=== PATIENT | female | born 1980 | race American Indian/Alaskan Native ===

== ENCOUNTER 2017-01-16 17:56 | Emergency (ER) | payer MEDICAID ==
[2017-01-16 19:08] LABS: Basophils % (Auto) 1.2 % (0.0-1.8); Eosinophils % (Auto) 0.3 % (0.0-4.3); Hemoglobin 12.8 gm/dl (10.1-14.3); Mean Corpuscular HGB Conc 35 % (30-34); Mean Corpuscular Hemoglobin 31 pg (28-32); Mean Corpuscular Volume 90 fl (79-97); Platelet Count 495 K/mm3 (140-440); Red Blood Count 4.12 M/mm3 (3.65-5.03); Red Cell Distribution Width 14.6 % (13.2-15.2); White Blood Count 8.5 K/mm3 (4.5-11.0)
[2017-01-16 19:36] LABS: Anion Gap 17 mmol/L; BUN/Creatinine Ratio 13; Blood Urea Nitrogen 9 mg/dL (7-17); Calcium 9.2 mg/dL (8.4-10.2); Carbon Dioxide 28 mmol/L (22-30); Chloride 98.7 mmol/L (98-107); Glucose 113 mg/dL (65-100); Potassium 5.1 mmol/L (3.6-5.0); Sodium 139 mmol/L (137-145)
[2017-01-16 22:01] LABS: Bacteria,Urine 1+ /HPF (Negative); Bilirubin,Urine NEG (Negative); Blood,Urine NEG (Negative); Ketones,Urine NEG (Negative); Leukocyte Esterase,Urine NEG (Negative); Mucus,Urine FEW /HPF; Nitrite,Urine POS (Negative); Protein,Urine <15 mg/dL mg/dL (Negative); Urobilinogen,Urine < 2.0 mg/dL (<2.0)
--- NOTE | 2017-01-16 23:05 | Emergency Department Report ---
ED Headache HPI - General Chief Complaint: Headache Stated Complaint: HEADACHES Time Seen by Provider: 01/16/17 22:59 Source: patient, family (BOYFRINED) Exam Limitations: no limitations - History of Present Illness Initial Comments: 36 YO FEMALE WITH H/O SEIZURES NONCOMPLIANT WITH DILANTIN SINCE JUNE 2016. SHE HAD A 10/10 FRONTAL ACHY HEADACHE TODAY ASSOCIATED WITH NAUSEA/VOMITING SINCE 10 AM. SHE BELIEVES THAT THE [employer] SHE AT YESTERDAY IS RESPONSIBLE FOR THE VOMITING. . HER HEADACHE IS AT THE FRONT -RIGHT SIDE AND RIGHT OCCIPITAL SCALP RADIATING DOWN HER RIGHT NECK. THIS IS TYPICAL OF HER MIGRAINE Timing/Duration: 24 hours Quality: moderate Head Injury Location: frontal (10/10 HEADACHE,SEIZURES X3 TODAY), occipital Recent Head Trauma: no recent headache/trauma, chronic headaches (MIGRAINES) Modifying Factors: improves with: exposure to light, movement Associated Symptoms: facial pain, seizures. denies: fever/chills, stiff neck, vision changes Allergies/Adverse Reactions: Allergies latex Allergy (Verified 04/30/15 16:17) rash, itching Home Medications: Ambulatory Orders Ferrous Sulfate [Feosol 325 MG tab] 325 mg PO BID #60 tablet 05/09/15 [place] Thyroid 1 tab PO QDAY 01/16/17 Ibuprofen [Motrin] 800 mg PO Q8HR PRN #30 tablet 01/17/17 Lisinopril [Zestril TAB] 10 mg PO QDAY #30 tablet 01/17/17 Phenytoin [Dilantin] 300 mg PO TID #90 capsule.er 01/17/17 metFORMIN [Glucophage] 500 mg PO BID #60 tablet 01/17/17 oxyCODONE /ACETAMINOPHEN [Percocet 5/325] 1 tab PO Q6HR PRN #20 tablet 01/17/17 ED Review of Systems ROS: Stated complaint: HEADACHES Other details as noted in HPI Constitutional: denies: chills, fever Eyes: denies: eye pain, eye discharge, vision change ENT: denies: ear pain, throat pain Respiratory: denies: cough, shortness of breath, wheezing Cardiovascular: denies: chest pain, palpitations Endocrine: no symptoms reported Gastrointestinal: denies: abdominal pain, nausea, diarrhea Genitourinary: denies: urgency, dysuria, discharge Musculoskeletal: denies: back pain, joint swelling, arthralgia Skin: denies: rash, lesions Neurological: headache. denies: weakness, paresthesias Psychiatric: denies: anxiety, depression Hematological/Lymphatic: denies: easy bleeding, easy bruising ED Past Medical Hx - Past Medical History Previous Medical History?: Yes Hx Hypertension: Yes (since 2009) Hx Diabetes: Yes (since 2008) Hx Renal Disease: No Hx Headaches / Migraines: Yes (migraines) Hx Seizures: Yes (last 12/2014 on Dilantin) Hx Asthma: No Additional medical history: ANEMIA. THYROID - Surgical History Past Surgical History?: Yes Additional Surgical History: UTERINE FIBROID EMBOLIZATION - Social History Smoking Status: Current Every Day Smoker Substance Use Type: Alcohol - Medications Home Medications: Home Medications Medication Instructions Recorded Confirmed Last Taken Type Ferrous Sulfate [Feosol 325 MG tab] 325 mg PO BID #60 tablet 05/09/15 01/16/17 Unknown Rx [place] Thyroid 1 tab PO QDAY 01/16/17 01/16/17 Unknown History Ibuprofen [Motrin] 800 mg PO Q8HR PRN #30 tablet 01/17/17 Unknown Rx Lisinopril [Zestril TAB] 10 mg PO QDAY #30 tablet 01/17/17 Unknown Rx Phenytoin [Dilantin] 300 mg PO TID #90 capsule.er 01/17/17 Unknown Rx metFORMIN [Glucophage] 500 mg PO BID #60 tablet 01/17/17 Unknown Rx oxyCODONE /ACETAMINOPHEN [Percocet 1 tab PO Q6HR PRN #20 tablet 01/17/17 Unknown Rx 5/325] ED Physical Exam - General Limitations: No Limitations General appearance: alert, in no apparent distress - Head Head exam: Present: atraumatic, normocephalic - Eye Eye exam: Present: normal appearance, EOMI. Absent: scleral icterus, conjunctival injection - ENT ENT exam: Present: mucous membranes moist - Neck Neck exam: Present: normal inspection, full ROM - Respiratory Respiratory exam: Present: normal lung sounds bilaterally. Absent: respiratory distress, wheezes, rales, chest wall tenderness - Cardiovascular Cardiovascular Exam: Present: regular rate, normal rhythm, normal heart sounds. Absent: systolic murmur, diastolic murmur, rubs, gallop - GI/Abdominal GI/Abdominal exam: Present: soft, normal bowel sounds. Absent: distended, tenderness, guarding, rebound - Rectal Rectal exam: Present: deferred - Extremities Exam Extremities exam: Present: normal inspection, full ROM - Back Exam Back exam: Present: normal inspection, full ROM - Neurological Exam Neurological exam: Present: alert, oriented X3, CN II-XII intact. Absent: motor sensory deficit - Psychiatric Psychiatric exam: Present: normal affect, normal mood - Skin Skin exam: Present: warm, dry, intact, normal color. Absent: rash ED Course Vital Signs 01/16/17 01/16/17 01/16/17 18:08 22:31 22:32 Temperature 98.7 F 98.3 F Pulse Rate 87 93 H 90 Respiratory 16 16 14 Rate Blood Pressure 166/94 153/96 Blood Pressure 153/96 [Left] O2 Sat by Pulse 99 100 100 Oximetry 01/16/17 01/16/17 01/16/17 23:01 23:15 23:28 Temperature Pulse Rate 83 86 Respiratory 16 12 18 Rate Blood Pressure 153/96 161/96 Blood Pressure [Left] O2 Sat by Pulse 100 100 Oximetry 01/16/17 01/16/17 01/16/17 23:30 23:45 23:57 Temperature Pulse Rate 72 Respiratory 13 18 Rate Blood Pressure 149/84 144/91 Blood Pressure [Left] O2 Sat by Pulse 100 Oximetry 01/17/17 01/17/17 01/17/17 00:17 00:30 00:45 Temperature Pulse Rate 90 96 H Respiratory 14 14 Rate Blood Pressure 144/91 166/95 139/84 Blood Pressure [Left] O2 Sat by Pulse 100 96 100 Oximetry 01/17/17 01/17/17 01/17/17 01:00 01:33 01:45 Temperature Pulse Rate 90 Respiratory 14 Rate Blood Pressure 149/93 143/80 139/86 Blood Pressure [Left] O2 Sat by Pulse 100 100 Oximetry 01/17/17 02:00 Temperature Pulse Rate Respiratory Rate Blood Pressure 138/80 Blood Pressure [Left] O2 Sat by Pulse 99 Oximetry - Reevaluation(s) Reevaluation #1: 01/17/17 00:30 HEADACHE HAS DECREASE TO 2/10 NOW, EXPERIENCING SOME BURNING OF THE FOSPHENYTOIN GOING IN ED Medical Decision Making - Lab Data Result diagrams: 01/16/17 18:35 01/16/17 18:35 - Radiology Data Radiology results: report reviewed (CT HEAD: NEGATIVE) - Medical Decision Making SHE IS BETTER AND HEADACHE IS GONE. CT OF HEAD IS NEGATIVE THIS I WILL D/C PT HOME WITH COUPONS TO LOWER THE COSST OF HER MEDICATION Critical care attestation.: If time is entered above; I have spent that time in minutes in the direct care of this critically ill patient, excluding procedure time. ED Disposition Clinical Impression: Seizure Hyperglycemia due to type 2 diabetes mellitus Qualifiers: Diabetes mellitus technician terminal and repeater insulin use: unspecified technician terminal and repeater insulin use status Qualified Code(s): E11.65 - Type 2 diabetes mellitus with hyperglycemia Migraine Qualifiers: Migraine type: unspecified Status migrainosus presence: without status migrainosus Intractability: not intractable Qualified Code(s): G43.909 - Migraine, unspecified, not intractable, without status migrainosus Disposition: TO HOME OR SELFCARE Is pt being admited?: No Does the pt Need Aspirin: No Condition: Stable Instructions: Diabetes Mellitus Type 2 in Adults (ED), Acute Headache (ED), Recurrent Seizures Adult (ED) Prescriptions: Ibuprofen [Motrin] 800 mg PO Q8HR PRN #30 tablet PRN Reason: Analgesia Lisinopril [Zestril TAB] 10 mg PO QDAY #30 tablet metFORMIN [Glucophage] 500 mg PO BID #60 tablet oxyCODONE /ACETAMINOPHEN [Percocet 5/325] 1 tab PO Q6HR PRN #20 tablet PRN Reason: Pain Phenytoin [Dilantin] 300 mg PO TID #90 capsule.er Referrals: PRIMARY CARE, [Primary Care Provider] - 3-5 Days [facility] [place] [Outside] - 3-5 Days [facility] [Outside] - 3-5 Days Time of Disposition: 00:30
[2017-01-16] MEDS ORDERED: TORADOL IV ONE (23:19)
[2017-01-16] MEDS ORDERED: NACL 0.9% 1000 ML 1,000 ML IV ONE (23:22)
[2017-01-16] MEDS ORDERED: CEREBYX IV ONE ×2 (23:27→23:45)
[2017-01-16] MEDS ORDERED: [UNRECOGNIZED DRUG - OTHER] IV ONE (23:45)
[2017-01-16] MEDS ORDERED: NACL IV ONE (23:45)
[2017-01-17] MEDS ORDERED: COMPAZINE IV ONE (00:36)
[2017-01-17] MEDS ORDERED: BENADRYL IV ONE (00:36)
--- NOTE | 2017-01-17 00:43 | Cat Scan Report ---
FINAL REPORT EXAM: CT HEAD/BRAIN WO CON HISTORY: HEADACHE AND SEIZURE TECHNIQUE: Routine axial imaging was obtained of the brain without IV contrast. FINDINGS: There are no attenuation abnormalities. The ventricular system is appropriate in size and is symmetric. The visualized sinuses are clear. The mastoid air cells are well pneumatized. The calvarium appears intact. IMPRESSION: Within normal limits.
[2017-01-17 02:56] VITALS: BP 139/86
== END 2017-01-17 02:56 | disposition home or self-care (01) ==
LOC: ED 17:56
DX: G43.909 Migraine, unspecified, not intractable, without status migrainosus (principal); E11.65 Type 2 diabetes mellitus with hyperglycemia; R56.9 Unspecified convulsions; I10 Essential (primary) hypertension; E11.9 Type 2 diabetes mellitus without complications; F17.200 Nicotine dependence, unspecified, uncomplicated; Z91.040 Latex allergy status
CPT/HCPCS: 36415; 70450; 80048; 80185; 81001; 82962; 85025; 96365; 96375; 99285; J0780; J1200; J1885; J7030; Q2009

== ENCOUNTER 2020-07-07 18:14 | Emergency (ER) | payer MEDICAID ==
[2020-07-07 18:44] VITALS: BP 156/102
[2020-07-07] MEDS ORDERED: ASPIRIN 325 MG TAB PO ONE (18:46)
[2020-07-07 19:22] LABS: Basophils # (Auto) 0.1 K/mm3 (0.0-0.1); Basophils % (Auto) 0.8 % (0.0-1.8); Eosinophils # (Auto) 0.1 K/mm3 (0.0-0.4); Eosinophils % (Auto) 1.1 % (0.0-4.3); Hematocrit 42.5 % (30.3-42.9); Lymphocytes # (Auto) 3.3 K/mm3 (1.2-5.4); Lymphocytes % (Auto) 38.3 % (13.4-35.0); Mean Corpuscular HGB Conc 33 % (30-34); Mean Corpuscular Volume 86 fl (79-97); Monocytes # (Auto) 0.5 K/mm3 (0.0-0.8); Monocytes % (Auto) 5.7 % (0.0-7.3); Platelet Count 347 K/mm3 (140-440); Red Blood Count 4.95 M/mm3 (3.65-5.03); Red Cell Distribution Width 15.4 % (13.2-15.2)
[2020-07-07 19:48] LABS: Alanine Aminotransferase 8 units/L (7-56); Albumin 4.1 g/dL (3.9-5); BUN/Creatinine Ratio 12; Blood Urea Nitrogen 11 mg/dL (7-17); Calcium 9.1 mg/dL (8.4-10.2); Hemolysis Index 20
--- NOTE | 2020-07-07 19:49 | XRay Report ---
XR chest routine 2V INDICATION / CLINICAL INFORMATION: cp. COMPARISON: None available. FINDINGS: SUPPORT DEVICES: None. HEART /PULMONARY VASCULATURE: No significant abnormality. LUNGS / PLEURA: No significant pulmonary or pleural abnormality. No pneumothorax. ADDITIONAL FINDINGS: No significant additional findings. IMPRESSION: 1. No acute findings. Signer Name: Rolando Cantor MD Signed: 07/07/2020 7:45 PM Workstation Name: [id number]
[2020-07-07] MEDS ORDERED: SODIUM CHLORIDE 0.9% 1000 ML 1,000 ML IV ONE (20:17)
[2020-07-07] MEDS ORDERED: INSULIN REGULAR, HUMAN 100 UNITS/1 ML IV ONE ×2 (20:17→21:22)
--- NOTE | 2020-07-07 20:20 | Emergency Department Report ---
ED General Adult HPI - General Chief complaint: Hyperglycemia Stated complaint: HIGH BLOOD SUGAR/CP Time Seen by Provider: 07/07/20 19:40 Source: patient Mode of arrival: Ambulatory Limitations: No Limitations - History of Present Illness Initial comments: Patient is 39 years old female with history of type 2 diabetes on Metformin 500 mg twice a day however patient is noncompliant with her medication. Patient presented to the ER complaining of high blood sugar, thirsty and increased urinary frequency. Patient denied any fever or chills. Patient complaining of mild chest pain, epigastric with no radiation with burning sensation. - Related Data Home Medications Medication Instructions Recorded Confirmed Last Taken [place] Thyroid 1 tab PO QDAY 01/16/17 03/10/17 Unknown Ferrous Sulfate [Feosol 325 MG tab] 325 mg PO DAILY 03/10/17 03/10/17 Unknown Phenytoin [Dilantin] 300 mg PO DAILY 03/10/17 03/10/17 Unknown Previous Rx's Medication Instructions Recorded Last Taken Type lisinopriL [Zestril TAB] 10 mg PO QDAY #30 tablet 01/17/17 Unknown Rx metFORMIN [Glucophage] 500 mg PO BID #60 tablet 01/17/17 Unknown Rx Allergies Allergy/AdvReac Type Severity Reaction Status Date / Time latex Allergy rash, Verified 03/10/17 16:17 itching ED Review of Systems ROS: Stated complaint: HIGH BLOOD SUGAR/CP Other details as noted in HPI Comment: All other systems reviewed and negative Constitutional: denies: chills, fever Respiratory: denies: cough, shortness of breath, SOB with exertion Cardiovascular: palpitations. denies: chest pain Endocrine: increased thirst, increased urine. denies: increased hunger Gastrointestinal: denies: abdominal pain, nausea, vomiting Musculoskeletal: denies: back pain Neurological: denies: headache, weakness ED Past Medical Hx - Past Medical History Previous Medical History?: Yes Hx Hypertension: Yes (since 2008) Hx Diabetes: Yes (since 2010) Hx Deep Vein Thrombosis: Yes Hx GERD: Yes (occas) Hx Renal Disease: No Hx Headaches / Migraines: Yes (migraines) Hx Seizures: Yes (last 12/2016) Hx Asthma: No Additional medical history: ANEMIA. THYROID - Surgical History Additional Surgical History: UTERINE FIBROID EMBOLIZATION - Social History Smoking Status: Current Every Day Smoker - Medications Home Medications: Home Medications Medication Instructions Recorded Confirmed Last Taken Type [place] Thyroid 1 tab PO QDAY 01/16/17 03/10/17 Unknown History lisinopriL [Zestril TAB] 10 mg PO QDAY #30 tablet 01/17/17 03/10/17 Unknown Rx metFORMIN [Glucophage] 500 mg PO BID #60 tablet 01/17/17 03/10/17 Unknown Rx Ferrous Sulfate [Feosol 325 MG tab] 325 mg PO DAILY 03/10/17 03/10/17 Unknown History Phenytoin [Dilantin] 300 mg PO DAILY 03/10/17 03/10/17 Unknown History ED Physical Exam - General Limitations: No Limitations General appearance: alert, in no apparent distress - Head Head exam: Present: atraumatic, normocephalic, normal inspection - Eye Eye exam: Present: normal appearance, PERRL - ENT ENT exam: Present: normal exam, normal orophraynx, mucous membranes moist - Neck Neck exam: Present: normal inspection, full ROM. Absent: tenderness, meningismus - Respiratory Respiratory exam: Present: normal lung sounds bilaterally - Cardiovascular Cardiovascular Exam: Present: tachycardia - GI/Abdominal GI/Abdominal exam: Present: soft, normal bowel sounds. Absent: distended, tenderness, guarding, rebound, rigid, organomegaly, mass, bruit, pulsatile mass, hernia - Extremities Exam Extremities exam: Present: normal inspection, full ROM, normal capillary refill. Absent: tenderness, pedal edema, joint swelling, calf tenderness - Back Exam Back exam: Present: normal inspection, full ROM. Absent: CVA tenderness (R), CVA tenderness (L) - Neurological Exam Neurological exam: Present: alert, oriented X3, CN II-XII intact - Psychiatric Psychiatric exam: Present: normal mood - Skin Skin exam: Present: warm, intact, normal color ED Course Vital Signs 07/07/20 18:43 Temperature 99.3 F Pulse Rate 114 H Respiratory 20 Rate Blood Pressure 156/102 O2 Sat by Pulse 100 Oximetry ED Medical Decision Making - Lab Data Result diagrams: 07/07/20 19:05 07/07/20 19:05 - EKG Data -: EKG Interpreted by Mi EKG shows normal: sinus rhythm Rate: tachycardia - EKG Data Interpretation: no acute changes - Radiology Data Radiology results: report reviewed - Medical Decision Making Patient is 39 years old female with history of type 2 diabetes on Metformin 500 mg twice a day however patient is noncompliant with her medication. Patient presented to the ER complaining of high blood sugar, thirsty and increased urinary frequency. Patient denied any fever or chills. Patient complaining of mild chest pain, epigastric with no radiation with burning sensation. EKG shows sinus tachycardia. Labs reviewed and showed blood glucose of 529. Anion gap is 20. Patient received normal saline and 8 units of regular insulin. Blood sugar improved to 282. Patient counseled about diet and medication compliance. I added glipizide to her regimen and I strongly advised patient to follow-up with her primary care physician for further management. Patient also advised to return to the ER if she develop any new symptoms. Critical care attestation.: If time is entered above; I have spent that time in minutes in the direct care of this critically ill patient, excluding procedure time. ED Disposition Clinical Impression: Acute hyperglycemia, Hypertension Disposition: DC-01 TO HOME OR SELFCARE Is pt being admited?: No Condition: Stable Instructions: Hypertension (ED), Hyperglycemia, [id number], Hypertension, Adult Referrals: [facility] [Provider Group] - 3-5 Days
--- NOTE | 2020-07-08 10:30 | Electrocardiograph Report ---
[facility] Test Date: 2020-07-07 Test Time: 18:56:31 Pat Name: GIOVANA DOMINGUEZ Department: Room: Gender: F Buggy Man: SPARKLE : 1980 Requested By: LYNDSEY JAIN Order Number: [id number] Reading MD: Miles Hi Measurements Intervals [place] Rate: 111 P: 61 ME: 146 QRS: 29 QRSD: 74 T: 45 QT: 337 QTc: 459 Interpretive Statements Sinus tachycardia Probable left atrial enlargement No previous ECG available for comparison Electronically Signed On 07-08-2020 10:29:58 EDT by Miles Hi
== END 2020-07-07 23:01 | disposition home or self-care (01) ==
LOC: ED 18:14
DX: E11.65 Type 2 diabetes mellitus with hyperglycemia (principal); I10 Essential (primary) hypertension; K21.9 Gastro-esophageal reflux disease without esophagitis; G43.909 Migraine, unspecified, not intractable, without status migrainosus; R56.9 Unspecified convulsions; F17.200 Nicotine dependence, unspecified, uncomplicated; Z98.890 Other specified postprocedural states; Z79.84 Long term (current) use of oral hypoglycemic drugs; Z79.899 Other long term (current) drug therapy; Z91.040 Latex allergy status
CPT/HCPCS: 36415; 71046; 80053; 82962; 84484; 85025; 93005; 96361; 96374; 96376; 99284; J7030; J1815

== ENCOUNTER 2021-01-28 10:38 | Emergency (ER) | payer MEDICAID ==
[2021-01-28] MEDS ORDERED: ACETAMINOPHEN 325 MG TAB PO PRN (11:15)
[2021-01-28] MEDS ORDERED: SODIUM CHLORIDE 0.9% 1000 ML IV SOLN IV ONE (11:15)
[2021-01-28 11:44] LABS: Basophils # (Auto) 0.1 K/mm3 (0.0-0.1); Basophils % (Auto) 0.8 % (0.0-1.8); Eosinophils % (Auto) 0.1 % (0.0-4.3); Hematocrit 41.4 % (30.3-42.9); Hemoglobin 12.9 gm/dl (10.1-14.3); Lymphocytes # (Auto) 0.9 K/mm3 (1.2-5.4); Lymphocytes % (Auto) 5.8 % (13.4-35.0); Mean Corpuscular HGB Conc 31 % (30-34); Mean Corpuscular Volume 86 fl (79-97); Monocytes # (Auto) 1.2 K/mm3 (0.0-0.8); Monocytes % (Auto) 7.8 % (0.0-7.3); Platelet Count 334 K/mm3 (140-440); Red Blood Count 4.79 M/mm3 (3.65-5.03); Red Cell Distribution Width 15.3 % (13.2-15.2)
[2021-01-28] MEDS ORDERED: cefTRIAXone/NS 2 GM/100 ML 2 GM/100 ML BAG IV SCH (12:00)
[2021-01-28 12:04] LABS: Alanine Aminotransferase 32 units/L (7-56); Albumin 3.5 g/dL (3.9-5); BUN/Creatinine Ratio 10; Blood Urea Nitrogen 9 mg/dL (7-17); Calcium 8.7 mg/dL (8.4-10.2); Hemolysis Index 33
--- NOTE | 2021-01-28 12:35 | XRay Report ---
CHEST 1 VIEW INDICATION: fever. COMPARISON: 07/07/2020 FINDINGS: Support devices: None. Heart: Normal. Lungs/Pleura: No acute pulmonary or pleural findings. IMPRESSION: 1. No acute findings. Signer Name: Dennis Abraham MD Signed: 01/28/2021 12:31 PM Workstation Name: [id number]
--- NOTE | 2021-01-28 15:03 | Emergency Department Report ---
ED General Adult HPI - General Chief complaint: Weakness Stated complaint: FEVER,BODY PAIN,EAR IRRITATION,DEHYDRATION PUI?: No Time Seen by Provider: 01/28/21 11:07 Source: patient Mode of arrival: Ambulatory Limitations: No Limitations - History of Present Illness Initial comments: rt eaar pain fever weakness , dizzy , non compliant with her diabetes meds , no chets pain no sob -: days(s) Severity scale (0 -10): 4 Worsens with: none - Related Data Home Medications Medication Instructions Recorded Confirmed Last Taken [place] Thyroid 1 tab PO QDAY 01/16/17 03/10/17 Unknown Ferrous Sulfate [Feosol 325 MG tab] 325 mg PO DAILY 03/10/17 03/10/17 Unknown Phenytoin [Dilantin] 300 mg PO DAILY 03/10/17 03/10/17 Unknown Previous Rx's Medication Instructions Recorded Last Taken Type lisinopriL [Zestril TAB] 10 mg PO QDAY #30 tablet 01/17/17 Unknown Rx metFORMIN [Glucophage] 500 mg PO BID #60 tablet 01/17/17 Unknown Rx Glipizide/Metformin HCl 1 each PO BID #60 tablet 07/07/20 Unknown Rx [glipiZIDE-Metformin 2.5-500 mg] amLODIPine [Norvasc] 5 mg PO DAILY #30 tab 07/07/20 Unknown Rx Ciprofloxacin [Ciprofloxacin ORAL 500 mg PO Q12H #14 ml 01/28/21 Unknown Rx LIQ] Glipizide/Metformin HCl 1 each PO BID #60 tablet 01/28/21 Unknown Rx [glipiZIDE-Metformin 2.5-500 mg] Neomy/Polymyx B/Hc (Otic) Soln 4 drops TP TID #1 bottle 01/28/21 Unknown Rx [Cortisporin (Otic) Soln] Allergies Allergy/AdvReac Type Severity Reaction Status Date / Time latex Allergy rash, Verified 01/28/21 10:58 itching ED Review of Systems ROS: Stated complaint: FEVER,BODY PAIN,EAR IRRITATION,DEHYDRATION Other details as noted in HPI Constitutional: denies: chills, fever Eyes: denies: eye pain, eye discharge, vision change ENT: denies: ear pain, throat pain Respiratory: denies: cough, shortness of breath, wheezing Cardiovascular: denies: chest pain, palpitations Endocrine: no symptoms reported Gastrointestinal: denies: abdominal pain, nausea, diarrhea Genitourinary: denies: urgency, dysuria, discharge Musculoskeletal: denies: back pain, joint swelling, arthralgia Skin: denies: rash, lesions Neurological: denies: headache, weakness, paresthesias Psychiatric: denies: anxiety, depression Hematological/Lymphatic: denies: easy bleeding, easy bruising ED Past Medical Hx - Past Medical History Hx Hypertension: Yes (since 2008) Hx Diabetes: Yes (since 2010) Hx Deep Vein Thrombosis: Yes Hx GERD: Yes (occas) Hx Renal Disease: No Hx Headaches / Migraines: Yes (migraines) Hx Seizures: Yes (last 12/2016) Hx Asthma: No Additional medical history: ANEMIA. THYROID - Surgical History Additional Surgical History: UTERINE FIBROID EMBOLIZATION - Social History Smoking Status: Current Every Day Smoker - Medications Home Medications: Home Medications Medication Instructions Recorded Confirmed Last Taken Type [place] Thyroid 1 tab PO QDAY 01/16/17 03/10/17 Unknown History lisinopriL [Zestril TAB] 10 mg PO QDAY #30 tablet 01/17/17 03/10/17 Unknown Rx metFORMIN [Glucophage] 500 mg PO BID #60 tablet 01/17/17 03/10/17 Unknown Rx Ferrous Sulfate [Feosol 325 MG tab] 325 mg PO DAILY 03/10/17 03/10/17 Unknown History Phenytoin [Dilantin] 300 mg PO DAILY 03/10/17 03/10/17 Unknown History Glipizide/Metformin HCl 1 each PO BID #60 tablet 07/07/20 Unknown Rx [glipiZIDE-Metformin 2.5-500 mg] amLODIPine [Norvasc] 5 mg PO DAILY #30 tab 07/07/20 Unknown Rx Ciprofloxacin [Ciprofloxacin ORAL 500 mg PO Q12H #14 ml 01/28/21 Unknown Rx LIQ] Glipizide/Metformin HCl 1 each PO BID #60 tablet 01/28/21 Unknown Rx [glipiZIDE-Metformin 2.5-500 mg] Neomy/Polymyx B/Hc (Otic) Soln 4 drops TP TID #1 bottle 01/28/21 Unknown Rx [Cortisporin (Otic) Soln] ED Physical Exam - General Limitations: No Limitations General appearance: alert - Head Head exam: Present: atraumatic, normocephalic - Eye Eye exam: Present: normal appearance - ENT ENT exam: Present: mucous membranes moist - Neck Neck exam: Present: normal inspection - Respiratory Respiratory exam: Present: normal lung sounds bilaterally. Absent: respiratory distress - Cardiovascular Cardiovascular Exam: Present: regular rate, normal rhythm, tachycardia. Absent: systolic murmur, diastolic murmur, rubs, gallop - GI/Abdominal GI/Abdominal exam: Present: soft, normal bowel sounds - Extremities Exam Extremities exam: Present: normal inspection - Back Exam Back exam: Present: normal inspection - Neurological Exam Neurological exam: Present: alert, oriented X3 - Psychiatric Psychiatric exam: Present: normal affect, normal mood - Skin Skin exam: Present: warm, dry, intact, normal color. Absent: rash ED Course Vital Signs 01/28/21 01/28/21 01/28/21 10:49 11:21 11:47 Temperature 100.1 F H Pulse Rate 140 H 119 H Respiratory 18 Rate Blood Pressure 126/74 Blood Pressure 133/83 [Left] O2 Sat by Pulse 98 98 99 Oximetry 01/28/21 12:20 Temperature Pulse Rate 112 H Respiratory 22 Rate Blood Pressure Blood Pressure 131/77 [Left] O2 Sat by Pulse 99 Oximetry - Reevaluation(s) Reevaluation #1: 01/28/21 15:00 sepsis work up , neg , fluids given BS is down , refilled for her diabetes meds, advised patient to see her pcp , vss , no distres feels better , abx given ED Medical Decision Making - Lab Data Result diagrams: 01/28/21 11:29 01/28/21 11:29 Critical care attestation.: If time is entered above; I have spent that time in minutes in the direct care of this critically ill patient, excluding procedure time. ED Disposition Clinical Impression: Hyperglycemia, Non compliance w medication regimen, Fever, Right middle ear infection Disposition: 01 HOME / SELF CARE / HOMELESS Is pt being admited?: No Does the pt Need Aspirin: No Condition: Stable Instructions: Preventing Type 2 Diabetes Mellitus, Otitis Media, Adult, [id number], Hyperglycemia, [id number] Prescriptions: Ciprofloxacin [Ciprofloxacin ORAL LIQ] 500 mg PO Q12H #14 ml Neomy/Polymyx B/Hc (Otic) Soln [Cortisporin (Otic) Soln] 4 drops TP TID #1 bottle Glipizide/Metformin HCl [glipiZIDE-Metformin 2.5-500 mg] 1 each PO BID #60 tablet Referrals: PRIMARY CARE, [Primary Care Provider] - 3-5 Days
[2021-01-28] MEDS ORDERED: KETOROLAC 30 MG/1 ML INJ IV ONE (15:31)
[2021-01-28 15:47] LABS: Bilirubin,Urine NEG (Negative); Blood,Urine LG (Negative); Color,Urine Red (Yellow); Mucus,Urine FEW /HPF; RBC,Urine > 182.0 /HPF (0.0-6.0); Urobilinogen,Urine < 2.0 mg/dL (<2.0)
[2021-01-28 16:04] VITALS: BP 113/72
== END 2021-01-28 16:40 | disposition home or self-care (01) ==
LOC: ED 10:38
DX: E11.65 Type 2 diabetes mellitus with hyperglycemia (principal); H66.91 Otitis media, unspecified, right ear; I10 Essential (primary) hypertension; K21.9 Gastro-esophageal reflux disease without esophagitis; F17.200 Nicotine dependence, unspecified, uncomplicated; G43.909 Migraine, unspecified, not intractable, without status migrainosus; Z91.14 Patient's other noncompliance with medication regimen; Z86.718 Personal history of other venous thrombosis and embolism; Z91.040 Latex allergy status; Z79.899 Other long term (current) drug therapy
CPT/HCPCS: 36415; 71045; 80053; 81001; 82140; 82962; 84484; 85025; 85730; 87086; 87116; 87400; 87430; 96365; 96375; 99284; J0696; J1885; J7030; Q0162

== ENCOUNTER 2021-09-14 23:45 | Emergency (ER) | payer OTHER ==
[2021-09-15 05:26] LABS: Basophils # (Auto) 0.1 K/mm3 (0.0-0.1); Basophils % (Auto) 0.7 % (0.0-1.8); Eosinophils % (Auto) 0.3 % (0.0-4.3); Hematocrit 36.8 % (30.3-42.9); Hemoglobin 11.9 gm/dl (10.1-14.3); Lymphocytes # (Auto) 2.5 K/mm3 (1.2-5.4); Lymphocytes % (Auto) 28.9 % (13.4-35.0); Mean Corpuscular HGB Conc 32 % (30-34); Mean Corpuscular Volume 83 fl (79-97); Monocytes # (Auto) 0.8 K/mm3 (0.0-0.8); Monocytes % (Auto) 9.3 % (0.0-7.3); Platelet Count 482 K/mm3 (140-440); Red Blood Count 4.44 M/mm3 (3.65-5.03); Red Cell Distribution Width 14.6 % (13.2-15.2)
[2021-09-15 05:47] LABS: Alanine Aminotransferase 6 units/L (7-56); Albumin 3.9 g/dL (3.9-5); Blood Urea Nitrogen 6 mg/dL (7-17); Calcium 9.3 mg/dL (8.4-10.2); Hemolysis Index 4
[2021-09-15 05:48] LABS: BUN/Creatinine Ratio 9
--- NOTE | 2021-09-15 06:13 | XRay Report ---
XR abd series w cxr 1V INDICATION / CLINICAL INFORMATION: abd pain COMPARISON: None available. TECHNIQUE: Flat and erect images of the abdomen with additional AP view of the chest. FINDINGS: The chest demonstrates no significant abnormality. No specific abnormality of the bowel gas pattern. No free air. Possible small left kidney stone. IMPRESSION: 1. Nonobstructive bowel gas pattern. No acute findings within the chest. Possible small left kidney s tone. Signer Name: Jesus Mckeon II, MD Signed: 09/15/2021 6:08 AM Workstation Name: [id number]
[2021-09-15] MEDS ORDERED: METOCLOPRAMIDE 10 MG/2 ML INJ IV STA (07:14)
[2021-09-15] MEDS ORDERED: SODIUM CHLORIDE 0.9% 1000 ML 1,000 ML IV ONE (07:14)
[2021-09-15] MEDS ORDERED: diphenhydrAMINE 50 MG/ML VIAL IV STA (07:14)
[2021-09-15 07:15] VITALS: BP 135/86
--- NOTE | 2021-09-15 07:19 | Emergency Department Report ---
<REY EL - Last Filed: 09/15/21 07:15> ED General Adult HPI - General Chief complaint: Hyperglycemia Stated complaint: HIGH BLOOD SUGAR Time Seen by Provider: 09/15/21 04:51 Source: patient Mode of arrival: Ambulatory Limitations: No Limitations - History of Present Illness Initial comments: 41 y/o female with history of DM c/o of no BM in 2-3 days and nausea with occasional vomiting for the last 3 days too. No hemoptysis or hematemesis. no fever, chills or sweats. -: Gradual Radiation: non-radiation Severity scale (0 -10): 3 Consistency: constant Improves with: none Associated Symptoms: denies other symptoms Treatments Prior to Arrival: none - Related Data Home Medications Medication Instructions Recorded Confirmed Last Taken Lamont Thyroid 1 tab PO QDAY 01/16/17 03/10/17 Unknown Ferrous Sulfate [Feosol 325 MG tab] 325 mg PO DAILY 03/10/17 03/10/17 Unknown Phenytoin [Dilantin] 300 mg PO DAILY 03/10/17 03/10/17 Unknown Previous Rx's Medication Instructions Recorded Last Taken Type lisinopriL [Zestril TAB] 10 mg PO QDAY #30 tablet 01/17/17 Unknown Rx metFORMIN [Glucophage] 500 mg PO BID #60 tablet 01/17/17 Unknown Rx Glipizide/Metformin HCl 1 each PO BID #60 tablet 07/07/20 Unknown Rx [glipiZIDE-Metformin 2.5-500 mg] amLODIPine [Norvasc] 5 mg PO DAILY #30 tab 07/07/20 Unknown Rx Ciprofloxacin [Ciprofloxacin ORAL 500 mg PO Q12H #14 ml 01/28/21 Unknown Rx LIQ] Glipizide/Metformin HCl 1 each PO BID #60 tablet 01/28/21 Unknown Rx [glipiZIDE-Metformin 2.5-500 mg] Neomy/Polymyx B/Hc (Otic) Soln 4 drops TP TID #1 bottle 01/28/21 Unknown Rx [Cortisporin (Otic) Soln] Lactulose [Cephulac] 30 gm PO Q6HR #450 ml 09/15/21 Unknown Rx Metoclopramide [Reglan] 10 mg PO BID #10 tab 09/15/21 Unknown Rx Allergies Allergy/AdvReac Type Severity Reaction Status Date / Time latex Allergy rash, Verified 12/08/21 10:58 itching ED Review of Systems Comment: All other systems reviewed and negative ED Past Medical Hx - Past Medical History Hx Hypertension: Yes (since 2008) Hx Diabetes: Yes (since 2010) Hx Deep Vein Thrombosis: Yes Hx GERD: Yes (occas) Hx Renal Disease: No Hx Headaches / Migraines: Yes (migraines) Hx Seizures: Yes (last 12/2016) Hx Asthma: No Additional medical history: ANEMIA. THYROID - Surgical History Additional Surgical History: UTERINE FIBROID EMBOLIZATION - Social History Smoking Status: Current Every Day Smoker - Medications Home Medications: Home Medications Medication Instructions Recorded Confirmed Last Taken Type Lamont Thyroid 1 tab PO QDAY 01/16/17 03/10/17 Unknown History lisinopriL [Zestril TAB] 10 mg PO QDAY #30 tablet 01/17/17 03/10/17 Unknown Rx metFORMIN [Glucophage] 500 mg PO BID #60 tablet 01/17/17 03/10/17 Unknown Rx Ferrous Sulfate [Feosol 325 MG tab] 325 mg PO DAILY 03/10/17 03/10/17 Unknown History Phenytoin [Dilantin] 300 mg PO DAILY 03/10/17 03/10/17 Unknown History Glipizide/Metformin HCl 1 each PO BID #60 tablet 07/07/20 Unknown Rx [glipiZIDE-Metformin 2.5-500 mg] amLODIPine [Norvasc] 5 mg PO DAILY #30 tab 07/07/20 Unknown Rx Ciprofloxacin [Ciprofloxacin ORAL 500 mg PO Q12H #14 ml 01/28/21 Unknown Rx LIQ] Glipizide/Metformin HCl 1 each PO BID #60 tablet 01/28/21 Unknown Rx [glipiZIDE-Metformin 2.5-500 mg] Neomy/Polymyx B/Hc (Otic) Soln 4 drops TP TID #1 bottle 01/28/21 Unknown Rx [Cortisporin (Otic) Soln] Lactulose [Cephulac] 30 gm PO Q6HR #450 ml 09/15/21 Unknown Rx Metoclopramide [Reglan] 10 mg PO BID #10 tab 09/15/21 Unknown Rx ED Physical Exam - General Limitations: No Limitations General appearance: alert, in no apparent distress - Head Head exam: Present: atraumatic, normocephalic - Eye Eye exam: Present: normal appearance, PERRL, EOMI Pupils: Present: normal accommodation - ENT ENT exam: Present: normal exam, mucous membranes moist, TM's normal bilaterally - Neck Neck exam: Present: normal inspection - Respiratory Respiratory exam: Present: normal lung sounds bilaterally. Absent: respiratory distress - Cardiovascular Cardiovascular Exam: Present: regular rate, normal rhythm. Absent: systolic murmur, diastolic murmur, rubs, gallop - GI/Abdominal GI/Abdominal exam: Present: soft, normal bowel sounds - Extremities Exam Extremities exam: Present: normal inspection - Back Exam Back exam: Present: normal inspection - Neurological Exam Neurological exam: Present: alert, oriented X3 - Psychiatric Psychiatric exam: Present: normal affect, normal mood - Skin Skin exam: Present: warm, dry, intact, normal color. Absent: rash ED Medical Decision Making - Lab Data Result diagrams: 09/15/21 05:03 09/15/21 05:03 ED Disposition Clinical Impression: Hyperglycemia, Gas bloat syndrome Disposition: 01 HOME / SELF CARE / HOMELESS Instructions: Nausea and Vomiting, Adult Additional Instructions: Make a follow-up appointment with your primary provider to be seen within 3 days for further outpatient evaluation for your elevated glucose level. Prescriptions: Lactulose [Cephulac] 30 gm PO Q6HR #450 ml Metoclopramide [Reglan] 10 mg PO BID #10 tab Referrals: [facility] [Provider Group] - 3-5 Days <JL TEE - Last Filed: 09/15/21 12:26> ED Review of Systems ROS: Stated complaint: HIGH BLOOD SUGAR Other details as noted in HPI ED Course Vital Signs 09/15/21 09/15/21 00:05 07:14 Temperature 99.5 F Pulse Rate 124 H 97 H Respiratory 20 18 Rate Blood Pressure 134/94 135/86 [Right] O2 Sat by Pulse 99 98 Oximetry ED Medical Decision Making - Lab Data Result diagrams: 09/15/21 05:03 09/15/21 05:03 Critical care attestation.: If time is entered above; I have spent that time in minutes in the direct care of this critically ill patient, excluding procedure time. ED Disposition Is pt being admited?: No Does the pt Need Aspirin: No Time of Disposition: 12:26
== END 2021-09-15 12:35 | disposition home or self-care (01) ==
LOC: ED 23:45
DX: E11.65 Type 2 diabetes mellitus with hyperglycemia (principal); R14.0 Abdominal distension (gaseous); I12.9 Hypertensive chronic kidney disease with stage 1 through stage 4 chronic kidney disease, or unspecified chronic kidney disease; E11.22 Type 2 diabetes mellitus with diabetic chronic kidney disease; N18.9 Chronic kidney disease, unspecified; K21.9 Gastro-esophageal reflux disease without esophagitis; I82.409 Acute embolism and thrombosis of unspecified deep veins of unspecified lower extremity; G43.909 Migraine, unspecified, not intractable, without status migrainosus; D64.9 Anemia, unspecified; E07.9 Disorder of thyroid, unspecified; Z98.890 Other specified postprocedural states; F17.290 Nicotine dependence, other tobacco product, uncomplicated; Z91.040 Latex allergy status
CPT/HCPCS: 36415; 74022; 80053; 82962; 83690; 84703; 85025; 96361; 96374; 96375; 99284; J1200; J2765; J7030